=== PATIENT | female | born 1950 | race Caucasian/White ===

== ENCOUNTER 2019-02-16 08:37 | Day surgery (SDC) | payer MEDICARE, OTHER ==
[~2019-02-16] VITALS: Ht 170.2 cm; Wt 66.8 kg
[2019-02-16 08:57] LABS: HEMATOCRIT 36.4 % (36.0-48.0); HEMOGLOBIN 12.2 g/dL (12-16); MCH 29.2 pg (26.0-34.0); MCHC 33.5 g/dL (31.0-37.0); MCV 87.1 fL (80.0-100.0); MEAN PLATELET VOLUME 9.6 fL (7.4-10.4); RBC 4.18 10x6/uL (4.00-5.40); RDW 13.9 % (11.5-14.5); WBC 6.4 10x3/uL (4.8-10.8)
[2019-02-16] MEDS ORDERED: AMITRIPTYLINE100 MG PO (09:07)
[2019-02-16] MEDS ORDERED: BAYER CHEWABLE81 MG PO (09:08)
[2019-02-16] MEDS ORDERED: COREG 3.1253.125 MG PO (09:08)
[2019-02-16] MEDS ORDERED: CO Q-1030 MG PO (09:09)
[2019-02-16] MEDS ORDERED: VITAMIN D31000 UNIT PO (09:09)
[2019-02-16] MEDS ORDERED: DONEPEZIL HCL10 MG PO (09:10)
[2019-02-16] MEDS ORDERED: NEXIUM40 MG PO (09:10)
[2019-02-16 09:11] LABS: ANION GAP 11.4 mmol/L (8-16); CALCIUM 9.2 mg/dL (8.5-10.1); CARBON DIOXIDE 29.1 mmol/L (21.0-32.0); CREATININE - SERUM 0.9 mg/dL (0.6-1.3); POTASSIUM - SERUM 3.5 mmol/L (3.5-5.1)
[2019-02-16] MEDS ORDERED: FUROSEMIDE40 MG PO (09:11)
[2019-02-16] MEDS ORDERED: ESTRACE1 MG PO (09:11)
[2019-02-16] MEDS ORDERED: GEMFIBROZIL600 MG PO (09:11)
[2019-02-16] MEDS ORDERED: NEURONTIN600 MG PO (09:11)
[2019-02-16 09:12] LABS: APTT 32.7 SECONDS (22.8-39.4); INR 1.29 (0.85-1.17); PROTIME 15.5 SECONDS (11.6-15.0)
[2019-02-16] MEDS ORDERED: OXYCODONE HCL E20 MG PO (09:12)
[2019-02-16] MEDS ORDERED: LISINOPRIL2.5 MG PO (09:12)
[2019-02-16] MEDS ORDERED: POTASSIUM CL ER 10 M (09:13)
[2019-02-16] MEDS ORDERED: PRAVACHOL80 MG PO (09:13)
[2019-02-16] MEDS ORDERED: EFFIENT10 MG PO (09:14)
[2019-02-16] MEDS ORDERED: ZOLOFT100 MG PO (09:15)
[2019-02-16] MEDS ORDERED: CALAN80 MG PO (09:16)
[2019-02-16] MEDS ORDERED: FLOMAX0.4 MG PO (09:16)
[2019-02-16] MEDS ORDERED: COUMADIN5 MG PO (09:17)
[2019-02-16 09:40] VITALS: BP 98/59; Ht 170.2 cm; Wt 66.8 kg
--- NOTE | 2019-02-16 09:47 | NUR ---
IV STARTED WITH 22G ANGIOCATH IN RIGHT ARM, TOLERATED WELL
--- NOTE | 2019-02-16 12:01 | NUR ---
DC INSTRUCTIONS GIVEN TO PT/FAMILY. STATE UNDERSTANDING. DC'D IV CATH FULLY INTACT. PT LEFT UNIT VIA WC AT 113
--- NOTE | 2019-02-18 14:01 | OP ---
PATIENT NAME: MIREILLE BENNETT MEDICAL RECORD: [id number] :48 LOCATION:D.OPS ADMISSION DATE: SURGEON: ROM BERNARDO DO DATE OF OPERATION: 02/16/2019 PROCEDURE: Colonoscopy with polypectomy. INDICATIONS FOR PROCEDURE: Screening colonoscopy with a known history of colon polyps. SCOPE: [employer] Medical video pediatric colonoscope. MEDICATIONS: Propofol 250 mg IV per anesthesia. WITHDRAWAL TIME: 22 minutes. ESTIMATED BLOOD LOSS: Minimal. COMPLICATIONS: None. FINDINGS: Informed consent was given. The patient was made comfortable with the above medication. After reaching an adequate level of sedation by slow IV push, the patient was placed on her left side. A digital rectal examination was performed and it was normal. The endoscope was advanced under direct visualization through the rectum to the cecum, confirmed by the presence of the appendiceal orifice and ileocecal valve. The endoscope was slowly withdrawn and mucosa was carefully examined. The prep quality was fair. There were 5 polyps visualized on today's examinations. Three were located in the ascending colon. They ranged in size from 3-6 mm in diameter. They were all benign appearing and sessile. Two were removed using hot forceps and the third and largest polyp was removed using a hot snare in 1 piece and completely retrieved. In the transverse colon, there were two separate benign-appearing sessile polyps, which ranged in size from 5 mm to 7 mm in diameter. They were both removed using a hot snare in 1 piece and completely retrieved. Retroflexion was performed in the rectum with a normal appearing rectal wall. The endoscope was withdrawn from the patient. The patient tolerated the procedure well and there were no complications. IMPRESSION: 1. Five polyps as described above, removed using a combination of a hot snare and hot forceps. 2. Otherwise, normal colonoscopy. PLAN AND RECOMMENDATIONS: 1. Discharge home when recovery parameters are met. 2. Follow up biopsy specimen results. 3. High fiber diet. 4. Continue current medications. 5. Recall colonoscopy in 3 years for personal history of polyps. TRANSINT:[id number] Voice Confirmation ID: [id number] DOCUMENT ID: [id number] OPERATIVE REPORT [id number] MIREILLE BENNETT ROM BERNARDO DO at 1406 CC: [id number] DICTATION DATE: 02/16/19 1054 [employer] REPAIRER OPERATOR: 02/16/19 1238 [facility] [place] 02/16/19 [facility] [address] [id number]
== END 2019-02-16 11:35 | disposition home or self-care (01) ==
LOC: D.OPS 08:37
PROVIDERS: Anesthesiology; ATTEND Internal Medicine Gastroenterology
DX: Z12.11 Encounter for screening for malignant neoplasm of colon (principal); D12.2 Benign neoplasm of ascending colon; D12.3 Benign neoplasm of transverse colon; Z86.010 Personal history of colon polyps; Z01.812 Encounter for preprocedural laboratory examination

== ENCOUNTER 2019-02-18 05:43 | Day surgery (SDC) | payer MEDICARE, OTHER ==
[~2019-02-18] VITALS: Ht 170.2 cm; Wt 62.3 kg
[~2019-02-18 05:43] MED LIST: AMITRIPTYLINE100 MG PO; BAYER CHEWABLE81 MG PO; CALAN80 MG PO; CO Q-1030 MG PO; COREG 3.1253.125 MG PO; COUMADIN5 MG PO; DONEPEZIL HCL10 MG PO; EFFIENT10 MG PO; ESTRACE1 MG PO; FLOMAX0.4 MG PO; FUROSEMIDE40 MG PO; GEMFIBROZIL600 MG PO; LISINOPRIL2.5 MG PO; NEURONTIN600 MG PO; NEXIUM40 MG PO; OXYCODONE HCL E20 MG PO; POTASSIUM CL ER 10 M; PRAVACHOL80 MG PO; VITAMIN D31000 UNIT PO; ZOLOFT100 MG PO
[2019-02-18 06:20] LABS: ANION GAP 12.4 mmol/L (8-16); CALCIUM 9.1 mg/dL (8.5-10.1); CARBON DIOXIDE 28.1 mmol/L (21.0-32.0); CREATININE - SERUM 0.9 mg/dL (0.6-1.3); POTASSIUM - SERUM 3.5 mmol/L (3.5-5.1)
[2019-02-18] MEDS ORDERED: XANAX1 MG PO (06:27)
[2019-02-18] MEDS ORDERED: ZOVIRAX400 MG PO (06:28)
[2019-02-18 06:40] LABS: HEMATOCRIT 35.4 % (36.0-48.0); HEMOGLOBIN 11.6 g/dL (12-16); MCHC 32.8 g/dL (31.0-37.0); MCV 88.5 fL (80.0-100.0); MEAN PLATELET VOLUME 9.8 fL (7.4-10.4); RDW 13.8 % (11.5-14.5); WBC 5.5 10x3/uL (4.8-10.8)
[2019-02-18 06:58] VITALS: BP 95/49; Ht 170.2 cm; Wt 62.3 kg
--- NOTE | 2019-02-18 14:01 | OP ---
PATIENT NAME: MIREILLE BENNETT MEDICAL RECORD: [id number] :48 [facility]: SURGEON: ROM BERNARDO DO DATE OF OPERATION: 02/18/2019 PROCEDURE: EGD with biopsies. INDICATIONS FOR PROCEDURE: Dysphagia, heartburn, nausea, epigastric pain. SCOPE: Olympus video gastroscope. MEDICATIONS: Propofol 80 mg IV per anesthesia. ESTIMATED BLOOD LOSS: Minimal. COMPLICATIONS: None. FINDINGS: Informed consent was given. The patient was made comfortable with the above medication. After reaching an adequate level of sedation by slow IV push, the patient was placed on her left side. The endoscope was advanced under direct visualization through the mouth to the second portion of the duodenum. The entire esophagus appeared normal. Random cold forceps biopsies were taken from the midesophagus to submit for histopathology and to rule out the presence of eosinophilic esophagitis. 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 Cold forceps biopsies were taken to submit for histopathology. The endoscope was advanced beyond the GE junction in the stomach and retroflexed to view the cardia and fundus, which appeared normal. In the fundus and body of the stomach, there were a few benign appearing fundic gland type gastric polyps. A single biopsy was taken to confirm their benign nature. The antrum and prepyloric regions appeared normal. Cold forceps, biopsies were taken to submit for histopathology and to rule out the presence of H. pylori. The endoscope was advanced beyond the pylorus into the duodenum, which appeared normal to the second portion. The endoscope was then withdrawn from the patient. The patient tolerated the procedure well and there were no complications. IMPRESSION: 1. 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 Biopsies taken. 2. Benign appearing fundic gland type gastric polyps. Biopsies taken. 3. Otherwise, normal esophagogastroduodenoscopy. PLAN AND RECOMMENDATIONS: 1. Discharge home when recovery parameters are met. 2. Follow up biopsy specimen results. 3. Barium esophagram regarding the dysphagia, which involves the upper esophagus. This could possibly be oropharyngeal dysphagia as well. 4. We will consider esophageal manometry and/or modified barium swallow if indicated after the barium esophagram. 5. Continue current medications. 6. Follow up in GI clinic in approximately 4 weeks. TRANSINT:[id number] Voice Confirmation ID: [id number] DOCUMENT ID: [id number] OPERATIVE REPORT [id number] MIREILLE BENNETT,ROM Gallegos DO at 1401 CC: [id number] DICTATION DATE: 02/18/19 0840 INSTRUMENT OPERATOR: 02/18/19 1106 [facility] 02/18/19 [facility] [address] [id number]
== END 2019-02-18 10:10 | disposition home or self-care (01) ==
LOC: D.OPS 05:43
PROVIDERS: Anesthesiology; ATTEND Internal Medicine Gastroenterology
DX: K21.0 Gastro-esophageal reflux disease with esophagitis (principal); K29.50 Unspecified chronic gastritis without bleeding; K31.7 Polyp of stomach and duodenum; Z01.812 Encounter for preprocedural laboratory examination